=== PATIENT | male | born 1970 | race Caucasian/White ===

== ENCOUNTER 2025-04-12 18:22 | Emergency (ER) | payer MEDICAID, SELFPAY ==
[2025-04-12] VITALS (7 sets, daily range): BP systolic 135–176; BP diastolic 81–115; PULSE 61–70; RESP 20; TEMP 36.7–36.8; O2SAT 95–100; BMI 49.4
--- OUTSIDE RECORDS SUMMARY | 2025-04-12 18:40 | XMS_ITS | Clinical Summary ---
Author Organization [email or web address] [facility] are -Transitions Address [address] [place] [address] [place] [address] Phone Care Team Providers Care Clinical Reimbursement Specialist Name Role Phone Jackie Ramos APRN Primary Care Physician + Conditions or Problems Problem Name Problem Code Onset Date Status Entry Date Provider Comment Standard Description Annotate Body mass index (BMI) 50.0-59.9; adult Z68.43 (ICD-10-CM ) 09/04 Active 09/04 Jackie Ramos APRN Body mass index [BMI] 50.0-59.9, adult Body mass index (BMI) 50.0-59.9; adult Z68.43 (ICD-10-CM ) 08/28 Correction 08/28 Jackie Ramos APRN Body mass index [BMI] 50.0-59.9, adult Body mass index (BMI) 50.0-59.9; adult Z68.43 (ICD-10-CM ) 08/28 Removed 08/28 Jackie Ramos APRN Body mass index [BMI] 50.0-59.9, adult Venous insufficien cy [id number] (SNOMED CT) 08/28 Active 08/28 Jackie Ramos APRN Peripheral venous insufficiency Body mass index (BMI) 50.0-59.9; adult Z68.43 (ICD-10-CM ) 08/26 Correction 08/26 Jackie Ramos APRN Body mass index [BMI] 50.0-59.9, adult Body mass index (BMI) 50.0-59.9; adult Z68.43 (ICD-10-CM ) 08/26 Removed 08/26 Jackie Ramos APRN Body mass index [BMI] 50.0-59.9, adult Tobacco User [id number] (SNOMED CT) 08/26 Active 08/26 Jackie Ramos APRN Tobacco user Methampheta mine abuse 272712895 (SNOMED CT) 08/26 Active 08/26 Jackie Ramos APRN Harmful pattern of use of methamphetamine Chronic instability of knee, right knee 462980325 (SNOMED CT) 08/26 Active 08/26 Jackie Ramos APRN Old anterior cruciate ligament disruption Lower extremity edema, bilateral 914704780 (SNOMED CT) 08/26 Active 08/26 Jackie Ramos APRN Edema of lower extremity Factor V Leiden mutation 502456740 (SNOMED CT) 08/26 Active 08/26 Jackie Ramos APRN Factor V Leiden mutation Medications Medication Instructions Start Date Stop Date Generic Name NDC Provider LIDOCAINE 5 % PTCH Apply 1 to 2 patch to skin once a day for pain place on affected area in morning, and remove at bedtime. 7 lidocaine [id number] Jackie Ramos APRN LIDOCAINE 5 % PTCH Apply 1 to 2 patch to skin once a day for pain place on affected area in morning, and remove at bedtime. 7 lidocaine [id number] Jackie Ramos APRN LASIX 20 MG TABS Take 1 tablet by mouth once a day for swelling 0 furosemide [id number] Jackie Ramos APRN ASPIRIN LOW DOSE 81 MG TBEC Take 1 tablet by mouth once a day 8 aspirin [id number] Jackie Ramos APRN Medications Administered No information available. Allergies, Adverse Reactions, Alerts Allergy Name Reaction Description Start Date Severity Statu s Provider VANCOMYCIN Critical Active Renny Ramos APRN Results Date Name Value Unit Range Flag Description Lab Report: LIPID PANEL WITH REFLEX TO DIRECT LDL, HDL CHOLESTEROL, TRIG ... HGBA1C 5.4 % <5.7 N Hemoglobin A1c/Hemoglobin, total in Blood - % BNP 27 pg/mL <100 N B-type natriu retic peptide (brain natriuretic peptide) T4, FREE 1.1 ng/dL 0.8-1.8 N Thyroxine (T 4) free [Mass/volume] in Serum or Plasma TSH 5.13 u[iU]/mL 0.40-4.50 H Thyrotropi n [Units/volume] in Serum or Plasma BASO % MANU 0.6 % N basophils as percent of blood leukocytes, manual count EOS % MANU 4.1 % N eosinophil s as percent of blood leukocytes, manual count MONOCYTE % 7.5 % N Monocytes/ 100 leukocytes in Blood by Automated count LYMPH% P BLD 20.0 % N lymphocy meri as percent of blood leukocytes PMN % 67.8 % N Neutrophils/1 00 leukocytes in Blood by Automated count ABS BASOS 53 {Cells}/uL 0-200 N Basophil s [#/volume] in Blood ABS EOS 365 {Cells}/uL 15-500 N Eosinophil s [#/volume] in Blood ABS MONOS 668 {Cells}/uL 200-950 N Monocyte s [#/volume] in Blood ABSLYMPHCT 1780 {Cells}/uL 850-3900 N Lympho cytes [#/volume] in Blood ABS NEUTROPH 6034 CELLS/UL 10*3/uL 4164-3573 N Neutrophils [#/v olume] in Blood MPV 11.1 fL 7.5-12.5 N Platelet monica n volume [Entitic volume] in Blood by Eula PLATELETK/UL 307 THOUSAND/UL 10*3/uL 140-400 N platelet count RDW 12.8 % 11.0-15.0 N Erythrocyte distribution width [Ratio] by Automated count OL-MCHC 32.6 g/dL 32.0-36.0 N mean corpus cular hemoglobin concentration, rbc MCH 29.6 pg 27.0-33.0 N MCH [Entiti c mass] by Automated count MCV 90.7 fL 80.0-100.0 N MCV [Entit ic volume] by Automated count HCT 41.1 % 38.5-50.0 N Hematocrit [Volume Fraction] of Blood by Automated count HGB 13.4 g/dL 13.2-17.1 N Hemoglobin [Mass/volume] in Blood RBC M/UL 4.53 MILLION/UL 10*6/uL 4.20-5.80 N red blood count WBC CT BLOOD 8.9 10*3/uL 3.8-10.8 N leukocy te count, blood SGPT (ALT) 21 U/L 9-46 N Alanine aminotransferase [Enzymatic activity/volume] in Serum or Plasma SGOT (AST) 18 U/L 10-35 N Aspartate aminotransferase [Enzymatic activity/volume] in Serum or Plasma ALK PHOS 52 U/L 35-144 N Alkaline reece sphatase [Enzymatic activity/volume] in Blood BILI TOTAL 0.4 mg/dL 0.2-1.2 N Bilirubin. total [Mass/volume] in Serum or Plasma A/G RATIO 1.3 (calc) 1.0-2.5 N Albumin/ Globulin [Mass Ratio] in Serum or Plasma GLOBULIN TOT 3.1 G/DL (CALC) g/dL 1.9-3.7 N Globulin [Mass/v olume] in Serum ALBUMIN EOP 3.9 g/dL 3.6-5.1 N Albumin [ Mass/volume] in Serum or Plasma by Electrophoresis PROTEIN, TOT 7.0 g/dL 6.1-8.1 N Protein [Mass/volume] in Serum or Plasma CALCIUM 9.4 mg/dL 8.6-10.3 N Calcium [Mol es/volume] in Serum or Plasma CO2 28 mmol/L 20-32 N Carbon dioxid e, total [Moles/volume] in Venous blood CHLORIDE BLD 104 mmol/L 98-110 N chloride , blood POTASSIUM 4.6 mmol/L 3.5-5.3 N Potassium [Moles/volume] in Serum or Plasma SODIUM 138 mmol/L 135-146 N Sodium [Moles /volume] in Serum or Plasma BUN/CREAT SEE NOTE: (calc) 6-22 Urea nitrogen/Creatinine [Mass Ratio] in Serum or Plasma CREATININE 0.85 mg/dL 0.70-1.30 N Creatini ne [Mass/volume] in Serum or Plasma BUN 22 mg/dL 7-25 N Urea nitrogen [Mass/volume] in Serum or Plasma GLUCOSE SER 91 mg/dL 65-99 N Glucose [ Mass/volume] in Serum or Plasma HEP C AB NON-REACTIV E NON-REACTIV E N Hepatitis C virus Ab [Presence] in Serum HB CORE IGM NON-REACTIV E NON-REACTIV E N Hepatitis B virus core IgM Ab [Units/volume] in Serum HBSAG NON-REACTIV E NON-REACTIV E N Hepatitis B virus surface Ag [Presence] in Serum or Plasma by Confirmatory method ANTI-HAV IGM NON-REACTIV E NON-REACTIV E N Hepatitis A virus IgM Ab [Presence] in Serum or Plasma by Immunoassay NON-HDL CHOL 102 MG/DL (CALC) mg/dL <130 N cholesterol, non -HDL, total CHOL/HDL % 2.7 (calc) <5.0 N cholest florentin/HDL ratio, serum, percent LDL 79 MG/DL (CALC) mg/dL N Cholesterol in L DL [Mass/volume] in Serum or Plasma - mg/dL TRIGLYC TOT 131 mg/dL <150 N Triglycer radah [Mass/volume] in Serum or Plasma - mg/dL HDL 60 mg/dL >OR = 40 N Cholesterol in HDL [Mass/volume] in Serum or Plasma - mg/dL CHOLESTEROL 162 mg/dL <200 N Cholester ol [Mass/volume] in Serum or Plasma - mg/dL Plan of Care Type Date Detail Referral [facility], [facility] [place], [address] Pending order T1 Acute Hepatit s Panel Pending order T2 B-Type Natriu retic Peptide (BNP) Pending order T1 CBC with diff Pending order T1 CMP Pending order T1 HGBA1c Pending order T1 Lipid Panel Pending order T1 TSH reflex to free T4 Pending order T1 Acute Hepatit s Panel Pending order T1 CBC with diff Pending order T1 CMP Pending order T1 HGBA1c Pending order T1 Lipid Panel Pending order T1 Acute Hepatit s Panel Pending Order exclud ed from report: Pending order T1 CBC with diff Pending Order exclud ed from report: Pending order T1 Lipid Panel Pending Order exclud ed from report: Pending order T1 HGBA1c Pending Order exclud ed from report: Pending order T1 CMP Pending Order exclud ed from report: Pending order T1 TIBC w iron l evel Pending Order exclud ed from report: Pending order T1 TSH reflex to free T4 Pending Order exclud ed from report: Pending order T1 Lipid Panel Pending Order exclud ed from report: Pending order T1 HGBA1c Pending Order exclud ed from report: Pending order T1 CMP Pending Order exclud ed from report: Pending order T1 CBC with diff Pending Order exclud ed from report: Pending order T1 Acute Hepatit s Panel Pending Order exclud ed from report: Pending order T1 Acute Hepatit s Panel Pending order T1 CBC with diff Pending order T1 CMP Pending order T1 HGBA1c Pending order T1 Lipid Panel Pending order T1 TSH reflex to free T4 Pending order T1 TIBC w iron l evel Patient education Patient Educat ion Given Patient education Patient Educat ion Given Patient education Patient Educat ion Given Patient education Patient Educat ion Given Procedures Code Procedure Name Date Entry Date CPT-1159F Medication list docu mented in medical record [id number] Medication Reconciliation [id number] Current every day smoker 03/11/27 4004F Patient screened for tobacco use and received tobacco cessation intervention [id number] Smoking cessation education [facility] 08066 T1 Acute Hepatits Panel 2024 [facility] 56314 T2 B-Type Natriuretic Peptide (BNP) 11/05 [facility] 6399 T1 CBC with diff [facility] 53185 T1 CMP [facility] 496 T1 HGBA1c [facility] 77850 T1 Lipid Panel [facility] 11701 T1 TSH reflex to free T4 10/14/27 [id number] Medication Reconciliation 27 [id number] Current every day smoker 02/09/26 4004F Patient screened for tobacco use and received tobacco cessation intervention [id number] Smoking cessation education CPT-3074F Most recent systolic blood pressure <130 mm Hg CPT-3079F Most recent diastoli c blood pressure 80-89 mm Hg CPT-1159F Medication list docu mented in medical record CPT-1160F Review of all medica tions by a prescribing practitioner CPT-3075F Most recent systolic blood pressure 130-139 mm Hg CPT-3078F Most recent diastoli c blood pressure <80 mm Hg CPT-1159F Medication list docu mented in medical record [id number] Medication Reconciliation [id number] Current every day smoker 03/09/19 4004F Patient screened for tobacco use and received tobacco cessation intervention [id number] Smoking cessation education CPT-1160F Review of all medica tions by a prescribing practitioner [facility] 28639 T1 Acute Hepatits Panel 2024 [facility] 6399 T1 CBC with diff [facility] 29111 T1 Lipid Panel [facility] 496 T1 HGBA1c [facility] 85596 T1 CMP [id number] Medication Reconciliation [id number] Giving encouragement to exercise 4004F Patient screened for tobacco use and received tobacco cessation intervention [id number] Current every day smoker 20 02/09/17 [id number] Smoking cessation education CPT-3074F Most recent systolic blood pressure <130 mm Hg CPT-3078F Most recent diastoli c blood pressure <80 mm Hg CPT-1159F Medication list docu mented in medical record CPT-1160F Review of all medica tions by a prescribing practitioner [facility] 7573 T1 TIBC w iron level [facility] 84911 T1 TSH reflex to free T4 10/11/17 [facility] 77350 T1 Lipid Panel [facility] 496 T1 HGBA1c [facility] 40526 T1 CMP [facility] 6399 T1 CBC with diff [facility] 16270 T1 Acute Hepatits Panel 2024 Vital Signs Date Name Value Unit Description BMI (Body Mass Index) 54.66 kg/m2 Bod y Mass Index (Ratio) BP Diastolic 76 mm[Hg] blood pressu re, diastolic BP Systolic 145 mm[Hg] blood pressur e, systolic BSA (Body Surface Area) 2.83 b adalgisa surface area Heart Rate 75 /min pulse rate Height 68.50 [in_us] height E&M Height 173.99 cm height in cent imeters E&M Weight Measured 165.23 kg weight in kilograms E&M Weight Measured 363.5 [lb_av] weight E& M Weight Measured 363.5 [lb_av] weight E& M Body Temperature 97.8 [degF] temperat ure E&M Body Temperature 36.56 Pham temperat ure in centigrade E&M Immunizations No information available. Advance Directives No information available.
--- OUTSIDE RECORDS SUMMARY | 2025-04-12 18:41 | XMS_ITS | Clinical Summary ---
Author Organization [facility] Address [address] [place] [address] Phone Care Team Providers Care Judicial Reporter Name Role Phone Macey NINO, Alex Ng [phone] Conditions or Problems Problem Name Problem Code Onset Date Status Entry Date Provider Comment Standard Description Annotate WOUND INFECTION L08.9 (ICD-10-CM) 09/21 Active 09/21 Med Horvath NP Local infection of the skin and subcutaneous tissue, unspecified FOLLOW-UP EXAMINATION FOLLOWING OTHER SURGERY Z09 (ICD-10-CM) 08/31 Active 08/31 Abigail Diego MA Encounter for follow-up examination after completed treatment for conditions other than malignant neoplasm History of DM 50972535 (SNOMED CT) 08/02 Active 08/03 Otilia Razo MA Diabetes mellitus HERNIATED LUMBAR DISK WITH RADICULOPATHY 963274610 (SNOMED CT) 08/02 Active 08/02 Alex Choudhury MD Lumbar disc prolapse with radiculopathy Medications Medication Instructions Start Date Stop Date Generic Name NDC Provider PERCOCET 5-325 MG TABS 1-2 po Q 4-6 hrs prn pain 5 OXYCODONE-ACET AMINOPHEN [id number] Alex Choudhury MD GABAPENTIN CAPS Non-Hendley 2 GABAPENTIN CAPS [id number] Otilia Razo MA LORTAB 10-500 MG ORAL TABLET Non-Hendley 2 HYDROCODONE-AC ETAMINOPHEN [id number] Otilia Razo MA Medications Administered No information available. Allergies, Adverse Reactions, Alerts Observed no known allergies at Results No information available. Plan of Care No information available. Procedures No information available. Vital Signs Date Name Value Unit Description BP Diastolic 68 mm[Hg] blood pressu re, diastolic BP Systolic 122 mm[Hg] blood pressur e, systolic Height 69 [in_us] height E&M Weight Measured 322 [lb_av] weight E& M Weight Measured 322 [lb_av] weight E& M Immunizations No information available. Advance Directives No information available.
--- NOTE | 2025-04-12 18:45 | ED_ITS ---
<Statement entered by Quoc Warren MD - 04/12/25 21:18> I was consulted by the ANDRÉS, and we discussed the complexity of the problems being addressed. I approve the treatment and management plan for this patient's care in the emergency department, thus performing a substantive portion of the medical decision making. Quoc Warren MD Discharge Plan Disposition Patient Disposition: Home, Self-Care Condition: Good Prescriptions Prescriptions: New clindamycin HCl [Cleocin HCl] 150 mg capsule 450 mg PO Q8H 10 Days Qty: 90 0RF Referrals Follow up/Referrals: Chetan Bills II, MD [Primary Care Provider, Medical] - See instructions Clinical Impressions Clinical Impression: Cellulitis Instructions Patient Instructions: Cellulitis Print Language Print Language: Turkish Discharge ED Provider: Quoc Warren General Adult HPI <FAITH Archibald - Last Filed: 04/12/25 20:13> General Chief complaint: Wound/Laceration Stated complaint: right leg hurts Time Seen by Provider: 04/12/25 18:23 Mode of Arrival: Ambulatory Source of Information: Patient and Spouse Description of Symptoms (Recalled from ER Triage Doc. by RN): patient presents for an infected puncture wound. patient stated a week ago that a nail gun was misfired and went into his leg. he was een ans treated, ultimately released. but due to swelling he has at baseline, the wound came back open and seems infected. History of Present Illness HPI narrative: Patient presents complaining of right lower extremity redness, swelling, pain. He had a laceration a few weeks ago caused by a rosey nail. It was left open due to concern of puncture. He did complete a course of augmentin. Current symptoms started several days ago. complaint: Leg pain Onset (ago): day(s) Location: right and lower extremity Radiation: non-radiation Consistency: constant Relieving factors: none Exacerbating factors: movement Associated symptoms: negative fever/chills Related Data Previous Rx's ?Medication ?Instructions ?Recorded clindamycin HCl 150 mg capsule 450 mg (3 x 150 mg) PO Q8H 10 days 04/12/25 (Cleocin HCl) #90 caps Allergies Allergy/AdvReac Type Severity Reaction Status Date / Time vancomycin Allergy Anaphylaxis Verified 04/12/25 18:42 PFSH <FAITH Archibald - Last Filed: 04/12/25 20:13> [facility] Disclaimer: The information contained in this section may have been updated after the patient was seen, as this information can be updated by other users. Social History Smoking Status: Current every day smoker alcohol intake: never current occupational status: other Travel in the last 8 weeks?: None <FAITH Archibald - Last Filed: 04/12/25 20:13> ROS Obtained: Yes Systems reviewed as appropriate & no additional complaints except as documented Physical Exam <FAITH Archibald - Last Filed: 04/12/25 20:13> General General appearance: alert and in no apparent distress Head Head exam: atraumatic and normocephalic Eye Eye exam: Present normal appearance and EOMI Chest Chest inspection: Present symmetric chest wall rise Respiratory Respiratory exam: Present normal lung sounds bilaterally; Absent wheezes or stridor Cardiovascular Cardiovascular exam: Present regular rate and normal rhythm; Absent systolic murmur Extremities Exam Extremities exam: Present full ROM Neurological Exam Neurological exam: Present alert and oriented X3 Psychiatric Psychiatric exam: Present normal affect and normal mood Skin Skin exam: Present other (2 cm x .5 cm scabbed area to Right anterior lower leg, slight erythema and edema surrounding this, he does have focal TTP. N/V intact ) Medical Decision Making <FAITH Archibald - Last Filed: 04/12/25 20:13> Medical Records Screening: Per USPSTF and CDC recommendations, given the prevalence of disease in our region, it is our hospital?s policy to screen for HIV and viral Hepatitis for all patients aged 18 and over and those with ongoing risk factors. Amari Inquiry Pt receiving controlled substance: No Vital Signs: 04/12/25 18:28 Temperature 98.1 F Temperature Source Oral Pulse Rate [Right Radial] 68 Respiratory Rate 20 Blood Pressure [Right Arm] 135/115 H Blood Pressure Mean [Right Arm] 121 Blood Pressure Source [Right Arm] Automatic Cuff Blood Pressure Position [Right Arm] Sitting 02 Sat by Pulse Oximetry 96 Oxygen Delivery Method Room Air Lab Data Lab Results 04/12/25 19:20: WBC 9.0, RBC 4.64, Hgb 13.7 L, Hct 41.7 L, MCV 89.9, MCH 29.5, MCHC 32.9, RDW 13.4, Plt Count 318, MPV 10.1, Neut % (Auto) 67.6, Lymph % (Auto) 19.3, Bibb % (Auto) 7.0, Eos % (Auto) 5.0, Baso % (Auto) 0.7, Neut # (Auto) 6.1, Lymph # (Auto) 1.7, Bibb # (Auto) 0.6, Eos # (Auto) 0.5 H, Baso # (Auto) 0.1, Sodium 138, Potassium 4.0, Chloride 102, Carbon Dioxide 30, Anion Gap 10.0, BUN 12, Creatinine 1.00, Estimated Creat Clear 83, Estimated GFR 78, Est GFR ( Amer) 95, Glucose 106 H, Calcium 8.9, Total Bilirubin 0.5, AST 45, ALT 48, Alkaline Phosphatase 67, Total Protein 8.1, Albumin 3.8, Globulin 4.3 H, A lbumin/Globulin Ratio 0.9 L 04/12/25 19:20 04/12/25 19:20 Orders (Tests/Meds): ED MEDICATIONS Generic Name Dose Route Start Last Admin Trade Name Freq PRN Reason Stop Dose Admin Clindamycin HCl 450 mg 04/12/25 20:08 Clindamycin 150mg Capsule PO 04/12/25 20:09 TID ONE ORDERS Category Date Time Status POCUS Point of Care (ER Only) Stat Exams 04/12/25 18:45 Completed CBC w/Auto Diff [Complete Blood Count Auto Diff] Stat Lab 04/12/25 19:20 Completed CMP [Comprehensive Metabolic Panel] Stat Lab 04/12/25 19:20 Completed Medical Decision Narrative: In summary patient is a 54-year-old who presents the emergency department for evaluation of right lower extremity pain. Patient is hemodynamically upon arrival, afebrile. Scabbed area with some tenderness, erythema and edema on exam. Differential diagnosis includes abscess, cellulitis. No calf tenderness or swelling to suggest DVT. initial workup will be conducted with CBC, CMP, POCUS. Initial workup reviewed by me cobblestoning evident on POCUS, no evidence of abscess. Labs on actionable. Upon repeat evaluation patient resting comfortably. Given this patient is appropriate for discharge home at this time with a prescription for clindamycin. Advise follow-up with PCP within 24 to 48 hours for recheck. Return to ER for any worsening symptoms including fever.. <Quoc Warren MD - Last Filed: 04/12/25 19:02> Vital Signs: 04/12/25 18:28 Temperature 98.1 F Temperature Source Oral Pulse Rate [Right Radial] 68 Respiratory Rate 20 Blood Pressure [Right Arm] 135/115 H Blood Pressure Mean [Right Arm] 121 Blood Pressure Source [Right Arm] Automatic Cuff Blood Pressure Position [Right Arm] Sitting 02 Sat by Pulse Oximetry 96 Oxygen Delivery Method Room Air Lab Data Lab Results 04/12/25 19:20: WBC 9.0, RBC 4.64, Hgb 13.7 L, Hct 41.7 L, MCV 89.9, MCH 29.5, MCHC 32.9, RDW 13.4, Plt Count 318, MPV 10.1, Neut % (Auto) 67.6, Lymph % (Auto) 19.3, Bibb % (Auto) 7.0, Eos % (Auto) 5.0, Baso % (Auto) 0.7, Neut # (Auto) 6.1, Lymph # (Auto) 1.7, Bibb # (Auto) 0.6, Eos # (Auto) 0.5 H, Baso # (Auto) 0.1, Sodium 138, Potassium 4.0, Chloride 102, Carbon Dioxide 30, Anion Gap 10.0, BUN 12, Creatinine 1.00, Estimated Creat Clear 83, Estimated GFR 78, Est GFR ( Amer) 95, Glucose 106 H, Calcium 8.9, Total Bilirubin 0.5, AST 45, ALT 48, Alkaline Phosphatase 67, Total Protein 8.1, Albumin 3.8, Globulin 4.3 H, A lbumin/Globulin Ratio 0.9 L Orders (Tests/Meds): ED MEDICATIONS Generic Name Dose Route Start Last Admin Trade Name Freq PRN Reason Stop Dose Admin Clindamycin HCl 450 mg 04/12/25 20:08 Clindamycin 150mg Capsule PO 04/12/25 20:09 TID ONE ORDERS Category Date Time Status POCUS Point of Care (ER Only) Stat Exams 04/12/25 18:45 Completed CBC w/Auto Diff [Complete Blood Count Auto Diff] Stat Lab 04/12/25 19:20 Completed CMP [Comprehensive Metabolic Panel] Stat Lab 04/12/25 19:20 Completed Procedures <Quoc Warren MD - Last Filed: 04/12/25 19:02> Limited Ultrasound Indication:: Limited MSK/soft tissue ultrasound Indication: Soft tissue swelling and redness Identified structures: Location: Right distal tavares Findings: -Cellulitis Impression: -Cellulitis of soft tissue Images were saved to permanent archive The study was technically adequate Soft Tissue CPT Codes: CPT Neck: 18444-93 CPT Upper extremity: 81047-11 CPT Axilla: 90005-00 CPT Chest wall: 77743-29 CPT Breast: 20575-28-BQ/LT (complete), 04682-13-PT/LT (limited), CPT Upper Back: 43621-93 CPT Lower Back: 22662-46 CPT Abdominal Wall: 76729-84 CPT Pelvic Wall: 54221-76 CPT Lower Extremity: 55718-46 CPT Other Soft Tissue: 32010-44 This study was performed by me, and I personally interpreted all images/videos. Based on my clinical judgement, these images were adequate and did not necessitate further imaging. Critical Care <FAITH Archibald - Last Filed: 04/12/25 20:13> Critical Care Time Critical Care Time: No
[2025-04-12 19:30] LABS: Hematocrit 41.7 % (42.0-52.0); Hemoglobin 13.7 g/dL (14.1-18.0); Immature Granulocytes % 0.4 %; Mean Corpuscular HGB Conc 32.9 g/dL (31.8-35.4); Mean Corpuscular Hemoglobin 29.5 pg (27.0-31.2); Mean Corpuscular Volume 89.9 fl (80-94); Nucleated Red Blood Cells % 0 %; Platelet Count 318 K/mm3 (142-424); Red Blood Count 4.64 M/mm3 (4.60-6.20); Red Cell Distribution Width-SD 44.0 fL; White Blood Count 9.0 K/mm3 (4.8-10.8)
[2025-04-12 19:40] LABS: Alanine Aminotransferase 48 U/L (12-78); Albumin Level 3.8 g/dl (3.5-5.0); Albumin/Globulin Ratio 0.9 (1.1-1.8); Alkaline Phosphatase 67 U/L (38-126); Anion Gap 10.0 mEq/L (5-15); Aspartate Amino Transferase 45 U/L (17-59); Bilirubin,Total 0.5 mg/dl (0.2-1.3); Blood Urea Nitrogen 12 mg/dl (9-20); Calcium 8.9 mg/dl (8.4-10.2); Carbon Dioxide 30 mmol/L (22.0-30.0); Chloride 102 mmol/L (98-107); Creatinine Clearance Estimated 83 mL/min (50-200); Creatinine,Serum 1.00 mg/dl (0.66-1.25); Estimated Glomerular Filt Rate 78 ml/min (>60); GFR (African American) 95 ML/MIN (>60); Globulin 4.3 g/dL (1.3-3.2); Glucose 106 mg/dl (74-100); Potassium 4.0 mmoL/L (3.5-5.1); Sodium 138 mmol/L (136-145); Total Protein,Serum 8.1 g/dl (6.3-8.2)
[2025-04-12] MEDS: CLINDAMYCIN 150MG CAPSULE 450 MG PO (20:24)
== END 2025-04-12 20:31 | disposition home or self-care (01) ==
PROVIDERS: Physician Assistant; Emergency Provider Student in an Organized Health Care Education/Training Program; PCP Family Medicine
DX: L03.115 Cellulitis of right lower limb (principal); M79.604 Pain in right leg; F17.210 Nicotine dependence, cigarettes, uncomplicated
CPT/HCPCS: 80053; 85025; 99283